=== PATIENT | female | born 1950 | race Caucasian/White ===

== ENCOUNTER → 2019-08-24 | Outpatient (CLI) | payer OTHER ==
[2019-08-24 07:55] LABS: ALBUMIN 2.6 GM/DL (3.2-4.5); POTASSIUM 4.1 MMOL/L (3.6-5.0)
[2019-08-24 07:57] LABS: CALCIUM 8.2 MG/DL (8.5-10.1)
[2019-08-24 07:58] LABS: TOTAL PROTEIN 4.1 GM/DL (6.4-8.2)
[2019-08-24 08:00] LABS: BILIRUBIN,TOTAL 0.2 MG/DL (0.1-1.0)
[2019-08-24 08:01] LABS: CREATININE SERUM 2.14 MG/DL (0.60-1.30)
== END ==
LOC: LABNPT 05:45
PROVIDERS: ATTEND Internal Medicine
DX: Z01.89 Encounter for other specified special examinations (principal)
CPT/HCPCS: 80053

== ENCOUNTER → 2019-08-25 | Outpatient (CLI) | payer OTHER ==
[2019-08-25 09:06] LABS: ALBUMIN 2.8 GM/DL (3.2-4.5); BILIRUBIN,TOTAL 0.2 MG/DL (0.1-1.0); CALCIUM 8.9 MG/DL (8.5-10.1); CREATININE SERUM 2.13 MG/DL (0.60-1.30); POTASSIUM 4.4 MMOL/L (3.6-5.0); TOTAL PROTEIN 4.9 GM/DL (6.4-8.2)
== END ==
LOC: LABNPT 08:39
PROVIDERS: ATTEND Internal Medicine
DX: Z01.89 Encounter for other specified special examinations (principal)
CPT/HCPCS: 80053

== ENCOUNTER → 2019-09-24 | Outpatient (CLI) | payer MEDICARE, OTHER ==
--- NOTE | 2019-09-24 16:22 | Diagnostic Imaging Report ---
INDICATION: Metastatic bladder carcinoma, initial staging. TECHNIQUE: Serum blood glucose level at the time of injection is 149 mg/dL. Patient was administered 13.3 mCi of F-18 FDG intravenously in the right antecubital location and PET imaging was performed from the top of the skull to the mid-thighs. Noncontrast CT was also performed for attenuation correction and anatomic correlation. COMPARISON: No prior imaging is available for comparison. FINDINGS: There is symmetric activity throughout the brain. Physiologic activity within the soft tissues of the neck is noted. No mediastinal or hilar hypermetabolism is identified. No pulmonary parenchymal hypermetabolism is identified. Abdomen and pelvis demonstrate physiologic activity within the GI and tracts. There is a large, destructive expansile mass involving the right acetabulum with involvement of the right superior and inferior pubic rami. There is extraosseous soft tissue extension. SUV max is approximately 6. The bladder is decompressed. No other regions of hypermetabolism are identified. Patient does have bilateral percutaneous nephrostomy tubes in place. There are some circumscribed low densities within the liver which may represent cysts. IMPRESSION: Large expansile destructive mass involving the right hemipelvis. This primarily involves the right acetabulum as well as the right superior and inferior pubic rami. This is most consistent with a metastatic lesion. No other suspicious regions of hypermetabolism are identified. Dictated by: Dictated on workstation # [id number]
== END ==
LOC: RAD 11:56
PROVIDERS: ATTEND Urology
DX: C67.9 Malignant neoplasm of bladder, unspecified (principal)
CPT/HCPCS: 78816; A9552

== ENCOUNTER 2019-10-31 15:11 | Outpatient (RCR) | payer MEDICARE, OTHER | END 2020-01-13 | disposition home or self-care (01) | LOC: ONC 15:11 | PROVIDERS: ATTEND Radiology Radiation Oncology | DX: C67.8 Malignant neoplasm of overlapping sites of bladder (principal); C79.51 Secondary malignant neoplasm of bone; I10 Essential (primary) hypertension; E87.5 Hyperkalemia; D47.3 Essential (hemorrhagic) thrombocythemia; N17.9 Acute kidney failure, unspecified; Z98.890 Other specified postprocedural states; Z98.51 Tubal ligation status | CPT/HCPCS: 77290; 77334; 77470; G0463; 77295; 77300; 77332; 77336; 77417; 99205 ==

== ENCOUNTER 2020-02-12 09:19 | Outpatient (RCR) | payer MEDICARE, OTHER ==
[2020-01-30 14:30] LABS: BASOPHILS % (AUTO) 0 % (0-10); EOSINOPHILS % (AUTO) 0 % (0-10); HEMATOCRIT 22 % (35-52); LYMPHOCYTES # (AUTO) 0.6 10^3/uL (1.0-4.0); LYMPHOCYTES % (AUTO) 3 % (12-44); MEAN CORPUSCULAR HEMOGLOBIN 28 pg (25-34); MEAN CORPUSCULAR HGB CONC 30 g/dL (32-36); MEAN CORPUSCULAR VOLUME 95 fL (80-99); MEAN PLATELET VOLUME 9.2 fL (9.0-12.2); MONOCYTES # (AUTO) 0.7 10^3/uL (0.0-1.0); MONOCYTES % (AUTO) 4 % (0-12); NEUTROPHILS % (AUTO) 92 % (42-75); PLATELET COUNT 259 10^3/uL (130-400); WHITE BLOOD COUNT 18.5 10^3/uL (4.3-11.0)
[2020-01-30 14:32] LABS: HEMOGLOBIN 6.7 g/dL (11.5-16.0)
[2020-01-30 14:48] LABS: ALBUMIN 2.6 GM/DL (3.2-4.5); BILIRUBIN,TOTAL 0.3 MG/DL (0.1-1.0); CALCIUM 8.6 MG/DL (8.5-10.1); CREATININE SERUM 1.19 MG/DL (0.60-1.30); POTASSIUM 4.4 MMOL/L (3.6-5.0); TOTAL PROTEIN 5.4 GM/DL (6.4-8.2)
[2020-02-05 09:44] LABS: BASOPHILS % (AUTO) 0 % (0-10); EOSINOPHILS % (AUTO) 0 % (0-10); HEMATOCRIT 26 % (35-52); HEMOGLOBIN 7.7 g/dL (11.5-16.0); LYMPHOCYTES # (AUTO) 0.4 10^3/uL (1.0-4.0); LYMPHOCYTES % (AUTO) 4 % (12-44); MEAN CORPUSCULAR HEMOGLOBIN 28 pg (25-34); MEAN CORPUSCULAR HGB CONC 30 g/dL (32-36); MEAN CORPUSCULAR VOLUME 92 fL (80-99); MEAN PLATELET VOLUME 9.1 fL (9.0-12.2); MONOCYTES # (AUTO) 0.4 10^3/uL (0.0-1.0); MONOCYTES % (AUTO) 4 % (0-12); NEUTROPHILS # (AUTO) 9.7 10^3/uL (1.8-7.8); NEUTROPHILS % (AUTO) 91 % (42-75); PLATELET COUNT 196 10^3/uL (130-400); WHITE BLOOD COUNT 10.6 10^3/uL (4.3-11.0)
[~2020-02-12 09:19] MED LIST: NS IV 1000 ML (CANCER CTR) IV SCH; PEMBROLIZUMAB 200 MG in NS (IVPB) CANCER CENTER 50 ML IV SCH
[2020-02-12 09:46] LABS: BASOPHILS % (AUTO) 0 % (0-10); EOSINOPHILS % (AUTO) 0 % (0-10); HEMATOCRIT 24 % (35-52); HEMOGLOBIN 7.4 g/dL (11.5-16.0); LYMPHOCYTES # (AUTO) 0.6 10^3/uL (1.0-4.0); LYMPHOCYTES % (AUTO) 4 % (12-44); MEAN CORPUSCULAR HEMOGLOBIN 28 pg (25-34); MEAN CORPUSCULAR HGB CONC 30 g/dL (32-36); MEAN CORPUSCULAR VOLUME 92 fL (80-99); MEAN PLATELET VOLUME 9.1 fL (9.0-12.2); MONOCYTES # (AUTO) 0.5 10^3/uL (0.0-1.0); MONOCYTES % (AUTO) 4 % (0-12); NEUTROPHILS # (AUTO) 11.6 10^3/uL (1.8-7.8); NEUTROPHILS % (AUTO) 90 % (42-75); PLATELET COUNT 194 10^3/uL (130-400); WHITE BLOOD COUNT 12.8 10^3/uL (4.3-11.0)
== END 2020-02-24 15:29 | disposition still patient (30) ==
LOC: ONC 09:19
PROVIDERS: ATTEND Internal Medicine Hematology & Oncology
DX: C67.9 Malignant neoplasm of bladder, unspecified (principal); C79.51 Secondary malignant neoplasm of bone; D63.0 Anemia in neoplastic disease; M89.9 Disorder of bone, unspecified; Z92.21 Personal history of antineoplastic chemotherapy
CPT/HCPCS: 80053; 83615; 85025; G0463; 36430; 36591; 84443; 86850; 86900; 86901; 86920; 96413; 99214

== ENCOUNTER → 2020-02-12 | Outpatient (CLI) | payer MEDICARE, OTHER ==
[2020-02-12 10:13] LABS: BILIRUBIN,URINE NEGATIVE (NEGATIVE); CLARITY,URINE CLOUDY; COLOR,URINE YELLOW; GLUCOSE, URINE (UA) NEGATIVE (NEGATIVE); KETONES,URINE NEGATIVE (NEGATIVE); LEUKOCYTE ESTERASE ,URINE 1+ (NEGATIVE); NITRITE,URINE POSITIVE (NEGATIVE); PROTEIN,URINE NEGATIVE (NEGATIVE)
[2020-02-12 10:24] LABS: BACTERIA,URINE MODERATE /HPF; RBC,URINE 0-2 /HPF; WBC,URINE 25-50 /HPF
== END ==
LOC: ONC 09:25
PROVIDERS: ATTEND Registered Nurse
DX: C67.9 Malignant neoplasm of bladder, unspecified (principal); R53.83 Other fatigue
CPT/HCPCS: 81000; 87088

== ENCOUNTER 2020-03-06 10:10 | Outpatient (RCR) | payer MEDICARE, OTHER ==
[2020-02-26 12:36] LABS: BASOPHILS % (AUTO) 0 % (0-10); EOSINOPHILS % (AUTO) 0 % (0-10); HEMATOCRIT 21 % (35-52); LYMPHOCYTES # (AUTO) 0.3 10^3/uL (1.0-4.0); LYMPHOCYTES % (AUTO) 2 % (12-44); MEAN CORPUSCULAR HEMOGLOBIN 28 pg (25-34); MEAN CORPUSCULAR HGB CONC 31 g/dL (32-36); MEAN CORPUSCULAR VOLUME 91 fL (80-99); MEAN PLATELET VOLUME 8.4 fL (9.0-12.2); MONOCYTES # (AUTO) 0.5 10^3/uL (0.0-1.0); MONOCYTES % (AUTO) 4 % (0-12); NEUTROPHILS # (AUTO) 11.9 10^3/uL (1.8-7.8); NEUTROPHILS % (AUTO) 93 % (42-75); PLATELET COUNT 193 10^3/uL (130-400); WHITE BLOOD COUNT 12.9 10^3/uL (4.3-11.0)
[2020-02-26 12:39] LABS: HEMOGLOBIN 6.5 g/dL (11.5-16.0)
[2020-02-26 12:54] LABS: ALBUMIN 2.4 GM/DL (3.2-4.5); BILIRUBIN,TOTAL 0.2 MG/DL (0.1-1.0); CALCIUM 8.7 MG/DL (8.5-10.1); CREATININE SERUM 1.26 MG/DL (0.60-1.30); POTASSIUM 3.9 MMOL/L (3.6-5.0); TOTAL PROTEIN 5.3 GM/DL (6.4-8.2)
[~2020-03-06 10:10] MED LIST changes: +ALTEPLASE 2 MG (CATHFLO) CANCER CENTER IV ONE
[2020-03-06 10:30] LABS: BASOPHILS % (AUTO) 0 % (0-10); EOSINOPHILS % (AUTO) 0 % (0-10); HEMATOCRIT 28 % (35-52); HEMOGLOBIN 8.6 g/dL (11.5-16.0); LYMPHOCYTES # (AUTO) 0.7 10^3/uL (1.0-4.0); LYMPHOCYTES % (AUTO) 8 % (12-44); MEAN CORPUSCULAR HEMOGLOBIN 29 pg (25-34); MEAN CORPUSCULAR HGB CONC 31 g/dL (32-36); MEAN CORPUSCULAR VOLUME 93 fL (80-99); MEAN PLATELET VOLUME 8.6 fL (9.0-12.2); MONOCYTES # (AUTO) 0.4 10^3/uL (0.0-1.0); MONOCYTES % (AUTO) 5 % (0-12); NEUTROPHILS # (AUTO) 7.9 10^3/uL (1.8-7.8); NEUTROPHILS % (AUTO) 86 % (42-75); PLATELET COUNT 298 10^3/uL (130-400); WHITE BLOOD COUNT 9.2 10^3/uL (4.3-11.0)
== END 2020-05-26 | disposition home or self-care (01) ==
LOC: ONC 10:10
PROVIDERS: ATTEND Internal Medicine Hematology & Oncology
DX: C67.9 Malignant neoplasm of bladder, unspecified (principal); C79.51 Secondary malignant neoplasm of bone; I10 Essential (primary) hypertension; M25.851 Other specified joint disorders, right hip; N13.30 Unspecified hydronephrosis; D64.9 Anemia, unspecified; N17.9 Acute kidney failure, unspecified; Z92.21 Personal history of antineoplastic chemotherapy; Z92.3 Personal history of irradiation
CPT/HCPCS: 36430; 36593; 80053; 84443; 85025; 86850; 86900; 86901; 86920; 96413; G0463; P9016